=== PATIENT | female | born 1995 | race Asian ===

== ENCOUNTER 2017-08-21 02:49 | Emergency (ER) | payer SELFPAY ==
[~2017-08-21] VITALS: Ht 154.9 cm; Wt 56.4 kg
[2017-08-21 02:55] VITALS: TEMP 36.7; O2SAT 100; Ht 154.9 cm; Wt 56.4 kg
[2017-08-21] MEDS ORDERED: ALUMINUM/MAGNESIUM SUSP 30 ML UDC PO STA (03:16)
[2017-08-21] MEDS ORDERED: LIDOCAINE HCL 2% VISC SOLN 20 ML UDC PO STA (03:16)
[2017-08-21] MEDS ORDERED: LORAZEPAM 1 MG TAB SL STA (04:09)
[2017-08-21 04:14] VITALS: BP 114/80; PULSE 68; O2SAT 98
--- NOTE | 2017-08-21 04:43 | EMERGENCY ROOM VISIT NOTE ---
History First contact with patient: 03:07 Chief Complaint: CHEST PAIN Stated Complaint: CHEST PAINS,PAIN BEHIND BREST BONE Nursing Triage Summary: PT was placed on clindamycin for possible infection after wisdom tooth removed. PT took first dose this evening approx 45 mins [employer]. PT states as soon as she took the med she became very short of breath and had left sided chest pain. PT RA sat is 100. PT does appear very anxious and states "my heart feels like it is racing, and I have heaviness." PT also very shaky at this time. History of Present Illness The patient is a 22 year old female who presents to the Emergency Room with complaints of epigastric pain after taking her clindamycin tablet tonight. Patient states she thought her wisdom tooth extraction site was getting infected and decided to take old clindamycin. Patient states she chewed her food up on the side and the area was painful so she thought it was infected. Patient states she had an allergic reaction to amoxicillin at the beginning of this year and is afraid she is having another one. Patient denies rash, itching , dyspnea, abdominal pain, headache, throat tightness, swelling. Patient is tolerated by mouth fluids. Review of Systems See HPI for pertinent positives & negatives. A total of 10 systems reviewed and were otherwise negative. Past Medical/Surgical History wisdom teeth extraction Social History Smoking Status: Never Smoker Smokeless Tobacco Use: No Drug Use: none Occupation Status: [employer] Current/Historical Medications No Active Prescriptions or Reported Meds Physical Exam Vital Signs Date Time Temp Pulse Resp B/P (MAP) Pulse Ox O2 Delivery O2 Flow Rate FiO2 08/21/17 04:14 68 18 114/80 98 Room Air 08/21/17 03:07 75 08/21/17 02:55 36.7 65 18 127/87 100 Room Air 08/21/17 02:55 100 Room Air 08/21/17 02:55 100 Room Air Physical Exam VITALS: Vitals are noted on the nurse's note and reviewed by myself. Vital signs stable. GENERAL: Pleasant female anxious-appearing, in no acute distress, nondiaphoretic , well-developed well-nourished. SKIN: The skin was without rashes, erythema, edema, or bruising. There is no tenting of the skin. Capillary reflex less than 2 seconds. HEAD: Normocephalic atraumatic. EARS: External auditory canals clear, tympanic membranes pearly sharma without erythema or effusion bilaterally. EYES: Pupils equal round and reactive to light and accommodation. Conjunctivae without injection, sclerae without icterus. Extraocular movements intact. NOSE: Patent, turbinates without inflammation or discharge. MOUTH: Mucous membranes moist. No tongue swelling. No perioral swelling. Pharynx without erythema or exudate. Uvula midline. Airway patent. Tongue does not deviate. NECK: Supple without nuchal rigidity. No lymphadenopathy. No thyromegaly. Cervical spine is nontender. No JVD. HEART: Regular rate and rhythm without murmurs gallops or rubs. LUNGS: Clear to auscultation bilaterally without wheezes, rales or rhonchi. No dullness to percussion. No retractions or accessory muscle use. ABDOMEN: Positive bowel sounds x 4. Normal tympanic percussion. Soft, nontender, without masses or organomegaly. Chacon sign negative. No guarding or rebound tenderness. MUSCULOSKELETAL: No muscle atrophy, erythema, or edema noted. NEURO: Patient was alert and oriented to person place and time. Normal sensation to light and sharp touch. No focal neurological deficits. Medical Decision & Procedures Medications Administered Medications (Trade) Dose Ordered Sig/Konrad Route Start Time Stop Time Status Last Admin Dose Admin Lidocaine HCl (Viscous Lidocaine 2% Soln) 10 ml NOW STAT PO 08/21/17 03:16 08/21/17 03:17 DC 08/21/17 03:16 10 ML Al Hydroxide/Mg Hydroxide (Maalox Susp) 30 ml NOW STAT PO 08/21/17 03:16 08/21/17 03:17 DC 08/21/17 03:16 30 ML Lorazepam (Ativan Tab) 1 mg NOW STAT SL 08/21/17 04:09 08/21/17 04:10 DC 08/21/17 04:14 1 MG ED Course Prior records/ancillary studies reviewed. Triage Nursing notes reviewed. Additional history obtained from friend. The patient's history was concerning for epigastric discomfort after taking a clindamycin tablet Differential diagnosis: Etiologies such as pill induced esophagitis, gastritis, cardiac ischemia, aortic dissection, pulmonary embolism, pneumonia, pneumothorax, musculoskeletal , infections, pericarditis, myocarditis, esophageal rupture, gastrointestinal, as well as others were entertained. Physical examination: As above. ER treatment provided: GI cocktail On reassessment the patient felt better. Diagnostic interpretation by me: Deferred Exam and history seem consistent with epigastric discomfort most likely from taking the pill. Symptoms started right after she took the tablet. Patient had no signs of allergic reaction. Patient is quite anxious appearing. She felt better after the GI cocktail. She is advised not to take any more antibiotics as her wisdom tooth extraction site was not infected. She was advised not to chew on this area. She is advised to follow-up with her dentist in a few days or here in the ER sooner for chest pain, difficulty breathing, worsening signs or symptoms or as needed. By the evaluation outlined above emergent etiologies such as cardiac ischemia, aortic dissection, pulmonary embolism, pneumonia, pneumothorax, infections, pericarditis, myocarditis, gastrointestinal, as well as others were deemed relatively unlikely. The pt informed about the findings as listed above. All questions were answered and pleased with the treatment. Return instructions were outlined and the patient was discharged in stable condition. Referral: The patient was referred back to dentist and primary care physician for follow- up in 2 to 3 days for a recheck of the current condition. Medical Decision As above Medication Reconcilliation Current Medication List: was personally reviewed by me Blood Pressure Screening Patient's blood pressure: Normal blood pressure Impression Primary Impression: Epigastric discomfort Departure Information Dispostion Home / Self-Care Condition GOOD Prescriptions No Active Prescriptions or Reported Meds Referrals [facility] (PCP) Patient Instructions [facility] Additional Instructions Do not take the clindamycin. Your gum is not infected. Avoid chewing on the side. Recommend warm saltwater gargles 3 times a day until your surgical site area heals from your wisdom tooth extraction site. Try Maalox for symptoms for reflux. Avoid large meals. Avoid acidic foods. Rest and drink plenty of fluids as tolerated. Continue current medications. Avoid strenuous activities and anything that worsens your pain. Resume normal activities once your symptoms resolve. Return to the ER immediately for worsening or persistent chest pain, abdominal pain, black or blood in your stools, vomiting, fevers, chest pains, difficulty breathing, worsening of your condition, or as needed. Follow up with your primary physician in 2-3 days for a recheck of your current condition.
== END 2017-08-21 04:35 | disposition home or self-care (01) ==
LOC: C.EDB 02:50 → C.EDA 04:35
DX: R10.13 Epigastric pain (principal)